=== PATIENT | female | born 1975 | race Caucasian/White ===

== ENCOUNTER 2022-12-11 15:21 | Emergency (ER) | payer MEDICAID, SELFPAY ==
[2022-12-11 15:31] VITALS: BP 105/64; PULSE 59; RESP 16; TEMP 36.7; O2SAT 99; BMI 29.4
[2022-12-11 16:45] LABS: Basophils Absolute Auto 0.05 K/uL (0.00-0.30); Basophils Percent Auto 0.6 % (0.0-3.0); Eosinophils Absolute Auto 0.24 K/uL (0.00-0.50); Eosinophils Percent Auto 2.8 % (0.0-7.0); Immature Granulocytes Abs Auto 0.01 K/uL (0.00-0.30); Immature Granulocytes Pct Auto 0.1 %; Lymphocytes Percent Auto 17.5 % (20-44); Mean Corpuscular HGB Conc 33 gm/dL (32-36); Mean Corpuscular Hemoglobin 29 pg (26-34); Mean Corpuscular Volume 90 fL (80-100); Monocytes Percent Auto 6.9 % (0.0-11.0); Neutrophils Percent Auto 72.1 % (42.0-72.0); Platelet Count* 307 K/uL (140-440); RDW Coefficient of Variation % 12.1 % (11.5-15.5); Red Blood Count 4.45 m/uL (4.00-5.20); White Blood Count* 8.46 K/uL (4.50-11.00)
[2022-12-11 16:48] LABS: Slide Review Reflex No
[2022-12-11 17:00] VITALS: BP 109/57; PULSE 48; RESP 18; O2SAT 99
[2022-12-11 17:08] LABS: Appearance Urine Clear (Clear); Bilirubin Urine Negative (Negative); Blood Urine Negative (Negative); Color Urine Yellow (Yellow); Glucose Urine Negative (Negative); Ketones Urine Trace (Negative); Leukocyte Esterase Urine 1+ (Negative); Nitrite Urine Negative (Negative); Protein Urine Negative (Negative); Specific Gravity Urine 1.015 (1.000-1.030); Urobilinogen Urine 0.2 (0.2-1.0)
[2022-12-11 17:11] LABS: Albumin* 4.7 g/dL (3.3-5.0); Chloride* 104 mmol/L (96-114); Sodium* 137 mmol/L (135-149)
[2022-12-11 17:11] LABS: Ur HCG Qualitative* Negative (Negative)
[2022-12-11 17:12] LABS: Potassium* 3.8 mmol/L (3.6-5.1)
[2022-12-11 17:15] LABS: Alanine Aminotransferase* 21 U/L (4-35); Alkaline Phosphatase* 62 U/L (40-150); Aspartate Amino Transferase* 25 U/L (12-35); Bilirubin Direct* 0.1 mg/dL (0.0-0.5); Bilirubin Total* 0.7 mg/dL (0.1-1.5); Blood Urea Nitrogen* 12 mg/dL (5-24); Calcium* 10.4 mg/dL (8.4-10.6); Carbon Dioxide* 27 mmol/L (20-32); Creatinine* 0.9 mg/dL (0.5-1.5); Estimated Glomerular Filt Rate 80 ml/min; Glucose* 95 mg/dL (60-115); Lipase* 64 U/L (23-300); Total Protein* 7.9 g/dL (6.0-8.3)
[2022-12-11 17:18] LABS: C Reactive Protein* 0.7 mg/dL (0.5-1.0)
[2022-12-11 17:30] VITALS: BP 115/68; PULSE 55; RESP 18; O2SAT 100
--- NOTE | 2022-12-11 17:34 | ED.GENADULT ---
HPI - General Adult General Date Seen: 12/11/22 Chief complaint: Nausea/Vomiting Stated complaint: Nausea and Bi-Polar issues Time Seen by Provider: 12/11/22 15:53 Source: patient and family Mode of arrival: ambulatory Limitations: no limitations History of Present Illness HPI narrative: Patient is a 47-year-old here for some nausea which she has noted for the past several weeks to couple of months. She also says she has been feeling ?negative lately. She has a history of bipolar disorder, was noted to have hyperprolactinemia recently and so she has been weaning off of her Seroquel. Remains on lithium. She says she is working on this with her psychiatrist who she saw 3 weeks ago. She did not mention to her psychiatrist that she has been feeling negative. She vomits occasionally but not routinely. She has not had any abdominal pain or diarrhea. No bloody stools. She has noted weight gain. She has not had fevers., night sweats or other systemic symptoms. She does tell me that sleep has historically been problematic for her and she has been falling asleep more easily but now is waking up at about 430 in the morning. She denied suicidal ideation. She is here with her mother who asked her a number of questions throughout my conversation with her as well. She had an MRI today to look for prolactinoma, results pending. Related Data Home Medications Medication Instructions Recorded Confirmed clonazepam 0.5 mg tablet 0.5 - 1 mg PO QPM PRN anxiety 12/11/22 12/11/22 haloperidol 1 mg tablet 1 - 2 mg PO Q8H PRN hallucinations 12/11/22 12/11/22 lithium carbonate 300 mg 1,200 mg PO DAILY 12/11/22 12/11/22 tablet,extended release naproxen 500 mg tablet 500 mg PO 12/11/22 omeprazole 20 mg capsule,delayed 20 mg PO DAILY PRN 12/11/22 12/11/22 release propranolol 20 mg tablet 20 mg PO 3XD PRN anxiety 12/11/22 12/11/22 Allergies Allergy/AdvReac Type Severity Reaction Status Date / Time lamotrigine [From Lamictal] Allergy Mild Rash Verified 12/11/22 15:41 Review of Systems Status of ROS: Reports: 6 or more systems reviewed and unremarkable except as noted in History and below PFSH PFSH Social History Smoking Status: Never smoker Do you use any of these nicotine containing products: None Second hand tobacco smoke exposure: No How often do you have a drink containing alcohol: never AUDIT-C Alcohol total score: 0 Non-prescribed substance use: denies use service: No Exam Narrative: Exam Narrative: Vital signs as noted above. In general, an alert, nontoxic woman. She is well groomed, reasonably good eye contact. Head: Normocephalic, atraumatic. Eyes: Pupils are equal reactive. Extraocular movements are full. Conjunctivae are normal. ENT: Mucous membranes are moist. Throat is normal. Neck: Supple without lymphadenopathy. Heart: Regular rate and rhythm. No murmur or rub. Lungs: Clear bilaterally. No increased work of breathing, crackles or wheezes. Abdomen: Soft and nontender. No organomegaly. No masses. Extremities: Well perfused. No edema. No calf tenderness. Pulses intact. Neurologic: Patient is alert and oriented to person and place. Speech is fluent. Face is symmetric. Moves all extremities equally. Affect: Normal. Skin: Warm and dry. Well perfused. Const: Vital Signs, click to edit/add: Vital Signs - 24 hr 12/11/22 15:31 12/11/22 17:00 12/11/22 18:00 Temperature 98.0 F Pulse Rate [Pulse Oximeter] 59 L 48 L 47 L Respiratory Rate 16 18 18 Blood Pressure [Ri ght Upper Arm] 105/64 109/57 L 115/50 L Pulse Oximetry 99 99 100 Oxygen Delivery Me thod Room Air Room Air Room Air 12/11/22 17:30 Temperature Pulse Rate [Pulse Oximeter] 55 L Respiratory Rate 18 Blood Pressure [Ri ght Upper Arm] 115/68 Pulse Oximetry 100 Oxygen Delivery Me thod Room Air Documenting provider has reviewed patient's vital signs: yes Course Course Hospital Course: I have reviewed her records, we saw her once several years ago with somewhat similar symptoms. They were concerned about possible lithium toxicity so I will check that level for them although discussed that it is relatively unlikely that this is lithium toxicity. Otherwise, I have checked basic labs including a CBC which shows a normal white blood cell count of 8.5, hemoglobin of 13, normal platelets. She has a normal metabolic panel, BUN is 12, creatinine 0.9, blood sugar 95, electrolytes normal. LFTs are entirely within normal limits. CRP is 0.7. Lipase is 64. Urinalysis is unremarkable. test is negative. Discussed with her that sometimes with fairly nonspecific symptoms such as nausea it can be difficult to find a direct cause in the emergency department. I have asked her to follow up with Dr. Dumont for further evaluation of her symptoms. I do not find anything concerning today on history, exam or laboratory evaluation to suggest a serious cause at this time, such as significant metabolic derangement, infection, neoplastic condition. Discussed that nausea may be multifactorial. Patient did bring up concerns about her thyroid when I was going over all of her other tests. I have asked her to follow up in clinic and I think that could be checked at that time. The lithium level is still pending as this is a send out. My suspicion for acute severe lithium toxicity is very low given absence of significant symptoms. She has had nausea for for quite some time now without significant progression, she has normal renal function, normal vital signs. Discussed that this labs should be back in a day or 2 we will call her if abnormal. Return at any time for acute worsening symptoms. I am prescribing some Zofran if needed for nausea. Vital Signs Vital signs: Initial Vital Signs Temperature 98.0 F 12/11/22 15:31 Temperature Source Temporal Artery Scan 12/11/22 15:31 Pulse Rate 59 L 12/11/22 15:31 Respiratory Rate 16 12/11/22 15:31 Blood Pressure 105/64 12/11/22 15:31 Blood Pressure Mean 77 12/11/22 15:31 Blood Pressure Position Sitting 12/11/22 15:31 Pulse Oximetry 99 12/11/22 15:31 Oxygen Delivery Method Room Air 12/11/22 15:31 Vital Signs Temperature 98.0 F 12/11/22 15:31 Pulse Rate 59 L 12/11/22 15:31 Respiratory Rate 16 12/11/22 15:31 Blood Pressure 105/64 12/11/22 15:31 Pulse Oximetry 99 12/11/22 15:31 Oxygen Delivery Method Room Air 12/11/22 15:31 Temperature 98.0 F 12/11/22 15:31 Pulse Rate 47 L 12/11/22 18:00 Respiratory Rate 18 12/11/22 18:00 Blood Pressure 115/50 L 12/11/22 18:00 Pulse Oximetry 100 12/11/22 18:00 Oxygen Delivery Method Room Air 12/11/22 18:00 Medical Decision Making Lab Data Labs: Lab Results 12/11/22 12/11/22 Range/Units 16:10 16:34 WBC 8.46 (4.50-11.00) K/uL RBC 4.45 (4.00-5.20) m/uL Hgb 13.0 (12.0-16.0) gm/dL Hct 40.0 (33.0-51.0) % MCV 90 (80-100) fL MCH 29 (26-34) pg MCHC 33 (32-36) gm/dL RDW Coeff of Shantanu 12.1 (11.5-15.5) % Plt Count 307 (140-440) K/uL Neut % (Auto) 72.1 H (42.0-72.0) % Lymph % (Auto) 17.5 L (20-44) % [place] % (Auto) 6.9 (0.0-11.0) % Eos % (Auto) 2.8 (0.0-7.0) % Baso % (Auto) 0.6 (0.0-3.0) % Neut # (Auto) 6.10 (1.7-7.0) K/uL Lymph # (Auto) 1.50 (0.90-2.90) K/uL [place] # (Auto) 0.60 (0.00-0.90) K/UL Eos # (Auto) 0.24 (0.00-0.50) K/uL Baso # (Auto) 0.05 (0.00-0.30) K/uL Sodium 137 (135-149) mmol/L Potassium 3.8 (3.6-5.1) mmol/L Chloride 104 (96-114) mmol/L Carbon Dioxide 27 (20-32) mmol/L BUN 12 (5-24) mg/dL Creatinine 0.9 (0.5-1.5) mg/dL Estimated Creat Clear 73.90 Estimated GFR 80 ml/min Glucose 95 (60-115) mg/dL Calcium 10.4 (8.4-10.6) mg/dL Total Bilirubin 0.7 (0.1-1.5) mg/dL Direct Bilirubin 0.1 (0.0-0.5) mg/dL AST 25 (12-35) U/L ALT 21 (4-35) U/L Alkaline Phosphatase 62 (40-150) U/L C-Reactive Protein 0.7 (0.5-1.0) mg/dL Total Protein 7.9 (6.0-8.3) g/dL Albumin 4.7 (3.3-5.0) g/dL Lipase 64 (23-300) U/L Urine Color Yellow (Yellow) Urine Appearance Clear (Clear) Urine pH 7.0 (5.0-8.5) Ur Specific [place] 1.015 (1.000-1.030) Urine Protein Negative (Negative) Urine Glucose (UA) Negative (Negative) Urine Ketones Trace A (Negative) Urine Blood Negative (Negative) Urine Nitrite Negative (Negative) Urine Bilirubin Negative (Negative) Urine Urobilinogen 0.2 (0.2-1.0) Ur Leukocyte Esterase 1+ A (Negative) Urine RBC 2-5 A (0-2) Urine WBC 2-5 (0-5) Urine WBC Clumps None (None) Ur Squamous Epith Cells Few (None-Few) Amorphous Sediment Few A (None) Urine Bacteria Few A (None) Urine HCG, Qual Negative (Negative) Discharge Plan Discharge Clinical Impression: Bipolar disorder, Nausea Patient Disposition: Home, Self-Care Condition: Stable Additional Instructions: Would recommend follow-up with Dr. Dumont in the next week or so. You can use Zofran if needed for nausea. Return at any time for acute worsening symptoms. [place] level should be back in a day or 2 and if abnormal we will call you. Prescriptions: No Action clonazepam 0.5 mg tablet 0.5 - 1 mg PO QPM PRN (Reason: anxiety) lithium carbonate 300 mg tablet extended release 1,200 mg PO DAILY haloperidol 1 mg tablet 1 - 2 mg PO Q8H PRN (Reason: hallucinations) omeprazole 20 mg capsule,delayed release(DR/EC) 20 mg PO DAILY PRN naproxen 500 mg tablet 500 mg PO propranolol 20 mg tablet 20 mg PO 3XD PRN (Reason: anxiety) Follow Up/Referrals: Payton Dumont MD [Primary Care Provider] - Stand Alone Forms: [employer] Info Instructions
[2022-12-11 17:43] LABS: Amorphous Sediment Urine Few; Bacteria Urine Few; Squamous Epithelial Cell Urine Few (None-Few)
[2022-12-11 18:00] VITALS: BP 115/50; PULSE 47; RESP 18; O2SAT 100
[2022-12-14 09:22] LABS: Lithium, Serum or Plasma 0.9 mmol/L (0.5-1.2)
== END 2022-12-11 18:33 | disposition home or self-care (01) ==
PROVIDERS: Emergency Provider Emergency Medicine; PCP Family Medicine
DX: R11.0 Nausea (principal); F31.9 Bipolar disorder, unspecified
CPT/HCPCS: 36415; 80048; 80076; 80178; 81001; 81025; 83690; 85025; 86140; 87086; 99283; 99284